=== PATIENT | male | born 1960 | race Caucasian/White ===

== ENCOUNTER 2017-11-04 21:19 | Emergency (ER) | payer MEDICAID ==
[~2017-11-04] VITALS: Ht 165.1 cm; Wt 70.3 kg
[2017-11-04 21:32] VITALS: BP 118/77
[2017-11-05] MEDS ORDERED: BACITRACIN TOP OINT 1 UD PKG TOP ONE (00:45)
[2017-11-05] MEDS ORDERED: LIDOCAINE 1% HCL (LOCAL ANESTH.) INJ 20ML MDV ID ONE (00:45)
[2017-11-05] MEDS ORDERED: cefTRIAXone SOD 1,000 MG VL IM ONE (01:15)
== END 2017-11-05 02:21 | disposition home or self-care (01) ==
LOC: ER 21:19
DX: S02.31XA Fracture of orbital floor, right side, initial encounter for closed fracture (principal); S01.111A Laceration without foreign body of right eyelid and periocular area, initial encounter; F17.210 Nicotine dependence, cigarettes, uncomplicated; W18.39XA Other fall on same level, initial encounter; Y93.89 Activity, other specified; Y92.89 Other specified places as the place of occurrence of the external cause; Y99.8 Other external cause status
CPT/HCPCS: 12013; 70450; 70486; 96372; 99284; J0696

== ENCOUNTER 2019-03-10 12:42 | Emergency (ER) | payer MEDICAID ==
[~2019-03-10] VITALS: Ht 167.6 cm; Wt 72.6 kg
[2019-03-10] MEDS ORDERED: IBUPROFEN 800 MG TAB PO ONE (14:00)
[2019-03-10 14:15] VITALS: BP 124/71
== END 2019-03-10 14:18 | disposition home or self-care (01) ==
LOC: ER 12:42
DX: S93.602A Unspecified sprain of left foot, initial encounter (principal); F17.210 Nicotine dependence, cigarettes, uncomplicated; Z88.0 Allergy status to penicillin; W01.198A Fall on same level from slipping, tripping and stumbling with subsequent striking against other object, initial encounter; Y93.89 Activity, other specified; Y99.8 Other external cause status; Y92.091 Bathroom in other non-institutional residence as the place of occurrence of the external cause
CPT/HCPCS: 73630

== ENCOUNTER 2019-12-11 10:30 | Emergency (ER) | payer MEDICAID ==
[~2019-12-11] VITALS: Ht 165.1 cm; Wt 72.6 kg
[2019-12-11] MEDS ORDERED: BACITRACIN TOP OINT 1 UD PKG TOP ONE (12:45)
[2019-12-11 13:01] VITALS: BP 109/79
== END 2019-12-11 13:12 | disposition home or self-care (01) ==
LOC: ER 10:30
DX: S61.217A Laceration without foreign body of left little finger without damage to nail, initial encounter (principal); F17.210 Nicotine dependence, cigarettes, uncomplicated; Z88.1 Allergy status to other antibiotic agents; X58.XXXA Exposure to other specified factors, initial encounter; Y93.89 Activity, other specified; Y92.89 Other specified places as the place of occurrence of the external cause; Y99.8 Other external cause status